=== PATIENT | female | born 1985 | race Caucasian/White ===

== ENCOUNTER 2017-09-14 23:34 | Inpatient (IN) | payer BC ==
[2017-09-15] MEDS ORDERED: METHYLERGONOVINE 0.2 MG/ML 1 ML AMP IM PRN (00:19)
[2017-09-15] MEDS ORDERED: TERBUTALINE 1 MG/ML VIAL SQ PRN (00:19)
[2017-09-15] MEDS ORDERED: OXYTOCIN 10 UNIT/ML 1 ML VIAL IM PRN (00:19)
[2017-09-15] MEDS ORDERED: CARBOPROST TROMETHAMINE 250 MCG/ML 1 ML AMP IM PRN (00:19)
[2017-09-15] MEDS ORDERED: LIDOCAINE 1% (PF) 10 MG/ML (30 ML SDV) SQ PRN (00:19)
[2017-09-15] MEDS ORDERED: BUTORPHANOL 1 MG/ML 1 ML VIAL IV PRN (00:20)
[2017-09-15] MEDS ORDERED: OXYTOCIN 20 UNITS/1000 ML NS 1,000 ML IV SCH (00:30)
[2017-09-15 01:01] VITALS: BMI 32.2
[2017-09-15] MEDS: LACTATED RINGERS 1,000 ML IV SCH ×3 (01:06→12:48)
[2017-09-15 01:14] LABS: Basophils # (A) 0.1 k/uL (0-0.2); Basophils % (A) 0 %; Eosinophils # (A) 0.2 k/uL (0-0.7); Eosinophils % (A) 1 %; HCT 32.9 % (34.0-46.0); HGB 11.3 gm/dL (11.4-16.0); Lymphocytes # (A) 2.6 k/uL (1.0-4.8); Lymphocytes % (A) 17 %; MCH 29.4 pg (25.0-35.0); MCHC 34.4 g/dL (31.0-37.0); MCV 85.4 fL (80.0-100.0); Mean Platelet Volume 7.8; Monocytes # (A) 0.8 k/uL (0-1.0); Monocytes % (A) 5 %; Neutrophils # (A) 11.7 k/uL (1.3-7.7); Neutrophils % (A) 75 %; Platelet Count 281 k/uL (150-450); RBC 3.85 m/uL (3.80-5.40); RDW 14.4 % (11.5-15.5); WBC 15.6 k/uL (3.8-10.6)
[2017-09-15] MEDS ORDERED: BUPIVACAINE (PF) 0.25% 30 ML VIAL ONE (07:36)
[2017-09-15] MEDS ORDERED: fentaNYL (PF) 50 MCG/ML 5 ML AMP ONE (07:36)
[2017-09-15] MEDS ORDERED: SODIUM CHLORIDE 0.9% 100 ML BAG ONE (07:36)
--- NOTE | 2017-09-15 07:55 | P.HPOB ---
History of Present Illness H&P Date: 09/15/17 This is a 32-year-old white female 1 para 0 EDC 09/28/2017 at 38 and one sevenths weeks' gestation. Patient presented with spontaneous amniorrhexis which occurred last night, clear fluid, at approximately 11 PM. She has had mild irregular uterine contractions to follow. Fetus is been active throughout the .. Past history significant for chronic arthritis and back pain, and - induced asthma. Past surgical history is negative. Current medications vitamins daily. ALLERGIES none known. Family history significant for heart disease, hypertension and stroke, brain tumor and Alzheimer's disease. Social history patient is a teacher, she is , she is never been a smoker , she denies alcohol or drug use. history is significant for negative group B strep cultures, 1 hour Glucola 140 but 3 hour GTT within normal limits, GC and chlamydia cultures, HIV testing, hepatitis B surface antigen, urine culture, VDRL all negative. Pap smear negative. Blood type A negative, rubella status immune. On exam this is a pleasant white female, she is 5 foot 3 inches, 182 pounds, blood pressure on admission 142/69. The general physical exam is within normal limits, the chest is clear in all canela. Extremities reveal no edema. heart rate is in the 140s with frequent accelerations consistent with reactive NST. Cervix is 2 cm dilated, -1 station, vertex presentation, 80% effaced. Uterine contractions are irregular at this time. Impression: 38 and one sevenths weeks intrauterine , early active labor with spontaneous amniorrhexis, all signs reassuring, blood type A-, group B strep culture negative. Plan: We will begin oxytocin augmentation. Continue close maternal and surveillance. Anticipate normal spontaneous vaginal delivery. Epidural may be placed per her request Review of Systems Constitutional: Reports as per HPI Past Medical History Past Medical History: Asthma History of Any Multi-Drug Resistant Organisms: None Reported Past Surgical History: No Surgical Hx Reported Past Anesthesia/Blood Transfusion Reactions: No Reported Reaction Past Psychological History: No Psychological Hx Reported Smoking Status: Never smoker Past Alcohol Use History: None Reported Past Drug Use History: None Reported - Past Family History Father Family Medical History: Hypertension Medications and Allergies Home Medications Medication Instructions Recorded Confirmed Type Yzd-Sapz-Oeguj Acid 1 tab PO DAILY 05/23/18 05/23/18 History [-U Capsule (formulary)] Allergies Allergy/AdvReac Type Severity Reaction Status Date / Time No Known Allergies Allergy Verified 09/14/17 23:40 Exam - Vital Signs Vital signs: Vital Signs Temp Pulse Resp BP Pulse Ox 09/15/17 00:09 96.6 F L 88 16 142/69 99 Intake and Output 09/14/17 09/15/17 09/15/17 22:59 06:59 14:59 Other: Weight 82.554 kg See dictation under HPI please Results Result Diagrams: 09/15/17 01:05 Abnormal Lab Results - Last 24 Hours (Table) 09/15/17 Range/Units 01:05 WBC 15.6 H (3.8-10.6) k/uL Hgb 11.3 L (11.4-16.0) gm/dL Hct 32.9 L (34.0-46.0) % Neutrophils # 11.7 H (1.3-7.7) k/uL Assessment and Plan Assessment: 38 and one sevenths weeks intrauterine , early spontaneous labor. Plan: Oxytocin augmentation per hospital protocol. Epidural is being placed per the patient's request. Continue close maternal and surveillance. Anticipate normal spontaneous vaginal delivery. Time with Patient: Less than 30
[2017-09-15] MEDS ORDERED: BUPIVACAINE (PF) 0.5% 12.5 ML, fentaNYL (PF) 200 MCG in SODIUM CHLORIDE 0.9% 83.5 ML EPIDURAL ONE (08:33)
--- NOTE | 2017-09-15 16:11 | P.PROBDLV ---
Vaginal Delivery Note - . Vaginal Delivery Note: This is a 32-year-old white female 1 para 0 EDC 09/28/2017 at 38 and one sevenths weeks' gestation. Patient presented with spontaneous amniorrhexis which occurred at night at home last night, clear fluid. She was admitted to the unit. Group B strep cultures negative. Blood type A-. Rubella status immune. Please see my dictated history and physical for details. Oxytocin augmentation was started. Patient became uncomfortable and requested epidural, this was placed without difficulty. She progressed through the first stage of labor with occasional late decelerations, overall excellent variability and reassuring pattern. Patient became completely dilated at 1525 hours and began the second stage of labor at that time. She progressed well in the second stage and heart tones were reassuring throughout. Ultimately the perineal body was prepped and draped in usual sterile fashion. 's head delivered occiput anterior and he restituted accordingly. There was no nuchal cord noted. The left or anterior shoulder was delivered easily from underneath the pubic symphysis at which time the oropharynx, nasopharynx, and external nares were bulb suctioned on the perineal body. Patient was officially delivered of a liveborn male at 1552 hours. Umbilical cord was doubly clamped and ligated, he was handed to waiting nurses for evaluation where scores of 9 and 9 at one and 5 minutes respectively were given. The placenta delivered spontaneously, it was inspected and noted to be intact with trivascular cord at 1555 hours. At this time the perineal body was redraped. Inspection of the cervix, vagina, perineum, periurethral, and perirectal areas revealed a small first-degree perineal laceration easily repaired using 3-0 Vicryl suture for excellent reapproximation and hemostasis. Fundus is firm and in the midline, symmetric and 18 week size upon completion of delivery. All sponge needle and enhancement counts are correct. They are requesting circumcision further infant son. Infant weighs 3180 g or 7 lbs. 0 oz.
[2017-09-15] MEDS ORDERED: BENZOCAINE/MENTHOL SPRAY 1 GM/SPRAY AEROSOL TOPICAL PRN (16:12)
[2017-09-15] MEDS ORDERED: diphenhydrAMINE 50 MG/ML 1 ML VIAL IVP PRN ×2 (16:12)
[2017-09-15] MEDS ORDERED: ZOLPIDEM 5 MG TAB PO PRN (16:12)
[2017-09-15] MEDS ORDERED: SIMETHICONE 80 MG CHEWABLE PO PRN (16:12)
[2017-09-15] MEDS ORDERED: diphenhydrAMINE 50 MG CAP PO PRN (16:12)
[2017-09-15] MEDS ORDERED: diphenhydrAMINE ELIXIR 25 MG/10 ML CUP PO PRN (16:12)
[2017-09-15] MEDS ORDERED: WITCH HAZEL 1 EACH MED..PAD TOPICAL PRN (16:12)
[2017-09-15] MEDS ORDERED: diphenhydrAMINE 25 MG CAP PO PRN (16:12)
[2017-09-15] MEDS ORDERED: HYDROcodone/APAP 5-325MG 1 EACH TAB PO PRN (16:12)
[2017-09-15] MEDS ORDERED: HYDROCORTISONE 2.5% RECTAL CREAM 30 GM TUBE RECTAL PRN (16:12)
[2017-09-15] MEDS ORDERED: LANOLIN CREAM 5 GM TUBE TOPICAL PRN (16:12)
[2017-09-15] MEDS: IBUPROFEN 600 MG TAB PO PRN (19:50)
[2017-09-15] MEDS: SENNOSIDES-DOCUSATE SODIUM 1 EACH TAB PO SCH (19:50)
[2017-09-15] MEDS: ACETAMINOPHEN TAB 325 MG TAB PO PRN (22:23)
[2017-09-16] MEDS: IBUPROFEN 600 MG TAB PO PRN ×2 (04:16→14:31)
--- NOTE | 2017-09-16 07:12 | P.DS ---
Providers Date of admission: 09/15/17 00:02 Expected date of discharge: 09/16/17 Attending physician: Beulah Cross Primary care physician: Stated None Hospital Course: This is a 32-year-old white female 1 para 0 EDC 09/28/2017 at 38-2/7 weeks' gestation. Patient presented to the hospital with spontaneous amniorrhexis which occurred at home, clear fluid. Her was unremarkable, group B strep cultures negative, blood type A-, rubella status immune. Please see my dictated history and physical for details. Oxytocin augmentation was started, epidural was placed per her request. She went on to deliver vaginally a liveborn male infant with scores of 9 and 9 at one and 5 minutes respectively. There was a small first-degree perineal laceration easily repaired. Estimated blood loss 300 mL's. weighed 3180 g or 7 lbs. 0 oz. Please see my dictated delivery note for details. This morning the patient is doing well. She is voiding, ambulating and passing flatus without difficulty. Vital signs are stable and she is afebrile. Fundus is firm and in the midline, symmetric and 18 week size. Perineal body is clean and dry. Extremities reveal no edema. Chest is clear. Circumcision on her has been performed. Patient is being discharged home today in very good condition. She will follow- up in the office with me in 6 weeks. We have reviewed the options for contraception and she and her will contemplate this, we will discuss further in the office. She will use wolc-wej-oonsemn Motrin products as needed for pain. I've asked her to call me with any fevers shakes or chills, foul smelling or copious lochia, with the passage of any large blood clots, with any pain not alleviated by Motrin, or indeed with any problems difficulties questions or concerns. Patient Condition at Discharge: Good Plan - Discharge Summary New Discharge Prescriptions: No Action Pmp-Xgmo-Bynim Acid [-U Capsule (formulary)] 1 tab PO DAILY Discharge Medication List Hkd-Jswk-Kquom Acid [-U Capsule (formulary)] 1 tab PO DAILY [History] Follow up Appointment(s)/Referral(s): Beulah Cross MD [STAFF PHYSICIAN] - 6 Weeks Discharge Disposition: HOME SELF-CARE
[2017-09-16] MEDS: ACETAMINOPHEN TAB 325 MG TAB PO PRN (08:06)
[2017-09-16] MEDS: SENNOSIDES-DOCUSATE SODIUM 1 EACH TAB PO SCH (08:08)
[2017-09-16 09:25] VITALS: RESP 16
[2017-09-16 19:07] VITALS: BP 132/78; PULSE 82; TEMP 98.1
== END 2017-09-16 17:45 | disposition home or self-care (01) | DRG 775 ==
LOC: FBPOP 23:34 → 4FBP 09-15 00:02
PROVIDERS: ADMIT Obstetrics & Gynecology; ATTEND Obstetrics & Gynecology
PROC: 10E0XZZ Delivery of Products of Conception, External Approach (ICD-10-PCS; principal; 2017-09-15)
PROC: 0HQ9XZZ Repair Perineum Skin, External Approach (ICD-10-PCS; 2017-09-15)
PROC: 00HU33Z Insertion of Infusion Device into Spinal Canal, Percutaneous Approach (ICD-10-PCS; 2017-09-15)
PROC: 3E0R3BZ Introduction of Anesthetic Agent into Spinal Canal, Percutaneous Approach (ICD-10-PCS; 2017-09-15)
DX: O99.52 Diseases of the respiratory system complicating childbirth (principal); O76 Abnormality in fetal heart rate and rhythm complicating labor and delivery; O70.0 First degree perineal laceration during delivery; J45.909 Unspecified asthma, uncomplicated; O99.89 Other specified diseases and conditions complicating pregnancy, childbirth and the puerperium; M19.90 Unspecified osteoarthritis, unspecified site; M54.9 Dorsalgia, unspecified; Z37.0 Single live birth; Z3A.38 38 weeks gestation of pregnancy; Z82.49 Family history of ischemic heart disease and other diseases of the circulatory system; Z82.3 Family history of stroke; Z82.0 Family history of epilepsy and other diseases of the nervous system
CPT/HCPCS: 84112; 85025; 88307; 99213

== ENCOUNTER 2019-01-23 13:00 | Outpatient (CLI) | payer BC ==
[2019-01-23 14:43] VITALS: BP 124/72; PULSE 81; RESP 14; TEMP 98
--- NOTE | 2019-02-12 08:02 | P.MSEPDOC ---
Presenting Problems - Arrival Data Date of Arrival on Unit: 01/23/19 Time of Arrival on Unit: 13:00 Mode of Transport: Ambulatory - Complaint OB-Reason for Admission/Chief Complaint: Possible Onset of Labor Comment: contraction started around 6 am this morning Medical History - Information : 2 Para: 1 Term: 1 : 0 Abortions: Spontaneous or Elective: 0 Number of Living Children: 1 - Gestational Age Gestational Age by SILVER (wks/days): 35 Weeks and 4 Days Review of Systems - Review of Systems Constitutional: No problems Breast: No problems ENT: No problems Cardiovascular: No problems Respiratory: No problems Gastrointestinal: No problems Genitourinary: No problems Musculoskeletal: No problems Neurological: No problems Skin: No problems Vital Signs - Temperature Temperature: 98 F Temperature Source: Oral - Pulse Right Brachial Pulse Rate: 81 Pulse Assessment Method: Automatic Cuff - Respirations Respiratory Rate: 14 Oxygen Delivery Method: Room Air - Blood Pressure Right Arm Blood Pressure: 124/72 Blood Pressure Mean: 89 Blood Pressure Source: Automatic Cuff Medical Screen Scoring (Pre) - Cervical Exam Dilation: 0 cm = 0 Membranes: Intact - Uterine Contractions Frequency: N/A Duration: N/A Intensity: N/A - Maternal Vital Signs Maternal Temperature: N/A Maternal Blood Pressure: N/A Signs of Preeclampsia: N/A Maternal Respirations: N/A - Maternal Trauma Maternal Trauma: N/A - Assessment - Baby A Baseline FHR: 145 Heart Rate - NICHD Category: Category I (Normal) = 0 NST: Reactive Position: N/A Station: N/A - Total Score - Baby A Total Score - Baby A: 0 - Total Score - Baby B Total Score - Baby B: 0 - Total Score - Baby C Total Score - Baby C: 0 - Level of Risk - Baby A Level of Risk - Baby A: Low (0-5) - Level of Risk - Baby B Level of Risk - Baby B: Low (0-5) - Level of Risk - Baby C Level of Risk - Baby C: Low (0-5) Physician Notification (Pre) - Physician Notified Physician Notified Date: 01/23/19 Physician Notified Time: 14:10 Physician/Practitioner Notifed:: kylah Spoke With: kylah New Order Received: Yes - Notification Comment Comment: reported pt visit with irregular contractions, reactive nst, stable v/s, cervical exam. would like pt rechecked with no change may be discharged home Disposition - Disposition OB Disposition: Physician follow up in office, Discharge to home Discharge Date: 01/23/19 Discharge Time: 14:32 I agree with the RN Medical Screening Exam: Yes Risk & Benefit of care provided described in d/c instruction: Yes Diagnosis: FALSE LABOR BEFORE 37 COMPLETED WEEKS OF GEST, THIRD TRI
== END 2019-01-23 14:32 | disposition home or self-care (01) ==
LOC: FBPOP 13:00
PROVIDERS: ATTEND Obstetrics & Gynecology
DX: O47.03 False labor before 37 completed weeks of gestation, third trimester (principal); Z3A.35 35 weeks gestation of pregnancy
CPT/HCPCS: 59025; 99213

== ENCOUNTER 2019-02-11 23:54 | Inpatient (IN) | payer BC ==
[2019-02-12] MEDS ORDERED: OXYTOCIN 10 UNIT/ML 1 ML VIAL IM PRN (00:30)
[2019-02-12] MEDS ORDERED: LIDOCAINE 0.5% (PF) 5 MG/ML (50 ML SDV) SQ PRN (00:30)
[2019-02-12] MEDS ORDERED: CARBOPROST TROMETHAMINE 250 MCG/ML 1 ML AMP IM PRN (00:30)
[2019-02-12] MEDS ORDERED: METHYLERGONOVINE 0.2 MG/ML 1 ML AMP IM PRN (00:30)
[2019-02-12] MEDS ORDERED: LACTATED RINGERS 1,000 ML IV SCH (00:30)
[2019-02-12] MEDS ORDERED: TERBUTALINE 1 MG/ML VIAL SQ PRN (00:30)
[2019-02-12] MEDS ORDERED: OXYTOCIN 30 UNITS/500 ML NS 30 UNIT in SALINE 1 500ML.BAG IV SCH (00:30)
[2019-02-12] MEDS: LACTATED RINGERS 1,000 ML IV SCH ×3 (01:56→06:16)
[2019-02-12 02:05] LABS: Basophils # (A) 0.1 k/uL (0-0.2); Basophils % (A) 0 %; Eosinophils # (A) 0.2 k/uL (0-0.7); Eosinophils % (A) 1 %; HCT 35.5 % (34.0-46.0); Lymphocytes # (A) 2.4 k/uL (1.0-4.8); Lymphocytes % (A) 14 %; MCH 27.6 pg (25.0-35.0); MCHC 31.1 g/dL (31.0-37.0); MCV 88.9 fL (80.0-100.0); Mean Platelet Volume 7.6; Monocytes # (A) 0.8 k/uL (0-1.0); Monocytes % (A) 5 %; Neutrophils # (A) 13.2 k/uL (1.3-7.7); Neutrophils % (A) 78 %; Platelet Count 290 k/uL (150-450); RBC 3.99 m/uL (3.80-5.40); RDW 14.4 % (11.5-15.5); WBC 16.8 k/uL (3.8-10.6)
[2019-02-12] MEDS ORDERED: ROPIVACAINE 5MG/ML 20ML VIAL ONE (03:47)
[2019-02-12] MEDS ORDERED: SODIUM CHLORIDE 0.9% 100 ML BAG ONE (03:47)
[2019-02-12] MEDS ORDERED: fentaNYL (PF) 50 MCG/ML 5 ML AMP ONE (03:47)
--- NOTE | 2019-02-12 07:54 | P.HPOB ---
History of Present Illness H&P Date: 02/12/19 Chief Complaint: My water broke last night This is a 33-year-old white female 2 para 1001 EDC 02/22/2019 at 38-4/7 weeks' gestation. Patient presented with spontaneous amniorrhexis which occurred at home at approximately 10:45 PM, clear fluid. She presented with ir regular mild uterine contractions. Fetus is been active throughout the . Past medical history is significant for asthma, on albuterol inhaler as needed. Also significant for chronic back pain. Past surgical history negative. Current medications Ventolin inhaler 90 MCG is 1-2 puffs every 4-6 hours when necessary. vitamin daily. ALLERGIES none known. Family history is significant for hypertension, stroke, heart disease, Alzheimer's disease, and a brain tumor. Reproductive history significant for vaginal delivery in August 2017, first-degree laceration. 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 history is significant for blood type A-, rubella status immune. VDRL testing, urine culture, group B strep cultures, HIV testing, gonorrhea and chlamydia cultures, group B strep cultures all negative. One-hour Glucola 108. On exam this is a pleasant white female who is 5 foot 3 inches, 181 pounds, blood pressure 130/77 on admission, vital signs are stable. The general phys ical exam is within normal limits. Cervix on admission was 4-5 cm dilated, vertex presentation, -2 station, obvious amniorrhexis. heart rate consistent with reactive NST. Impression: Advanced maternal age, 38-4/7 weeks intrauterine , early spontaneous labor. All signs reassuring. Plan: Continue close maternal and surveillance. Epidural has been requested and has been placed. Anticipate normal spontaneous vaginal delivery. Review of Systems Constitutional: Reports as per HPI Past Medical History Past Medical History: Asthma History of Any Multi-Drug Resistant Organisms: None Reported Past Surgical History: No Surgical Hx Reported Past Anesthesia/Blood Transfusion Reactions: No Reported Reaction Past Psychological History: No Psychological Hx Reported Smoking Status: Never smoker Past Alcohol Use History: None Reported Past Drug Use History: None Reported - Past Family History Father Family Medical History: Coronary Artery Disease (CAD), Hypertension Medications and Allergies Home Medications Medication Instructions Recorded Confirmed Type Hoh-Rdug-Jekku Acid 1 tab PO DAILY 09/14/17 02/12/19 History [-U Capsule (formulary)] Albuterol Inhaler [Ventolin Hfa 1 - 2 puff INHALATION RT-Q6H PRN 01/23/19 02/12/19 History Inhaler] Allergies Allergy/AdvReac Type Severity Reaction Status Date / Time No Known Allergies Allergy Verified 02/12/19 00:35 Exam Vital Signs Temp Pulse Resp BP 02/12/19 00:27 97.1 F L 108 H 16 130/77 Intake and Output 02/11/19 02/12/19 02/12/19 22:59 06:59 14:59 Other: # Voids 1 Weight 82.1 kg See dictation under HPI please Results Result Diagrams: 02/12/19 01:40 Abnormal Lab Results - Last 24 Hours (Table) 02/12/19 Range/Units 01:40 WBC 16.8 H (3.8-10.6) k/uL Hgb 11.0 L (11.4-16.0) gm/dL Neutrophils # 13.2 H (1.3-7.7) k/uL Assessment and Plan Assessment: Advanced maternal age, 38-4/7 weeks intrauterine , active labor. All signs reassuring. Plan: Continue close maternal and surveillance. Epidural has been placed per patient's request. Anticipate normal spontaneous vaginal delivery. Time with Patient: Less than 30
[2019-02-12] MEDS ORDERED: HYDROCORTISONE 2.5% RECTAL CREAM 30 GM TUBE RECTAL PRN (07:58)
[2019-02-12] MEDS ORDERED: ACETAMINOPHEN TAB 325 MG TAB PO PRN (07:58)
[2019-02-12] MEDS ORDERED: WITCH HAZEL 1 EACH MED..PAD TOPICAL PRN (07:58)
[2019-02-12] MEDS ORDERED: BENZOCAINE/MENTHOL SPRAY 1 GM/SPRAY AEROSOL TOPICAL PRN (07:58)
[2019-02-12] MEDS ORDERED: IBUPROFEN 600 MG TAB PO PRN (07:58)
[2019-02-12] MEDS ORDERED: ZOLPIDEM 5 MG TAB PO PRN (07:58)
[2019-02-12] MEDS ORDERED: diphenhydrAMINE 50 MG/ML 1 ML VIAL IVP PRN ×2 (07:58)
[2019-02-12] MEDS ORDERED: LANOLIN CREAM 5 GM TUBE TOPICAL PRN (07:58)
[2019-02-12] MEDS ORDERED: diphenhydrAMINE 50 MG CAP PO PRN (07:58)
[2019-02-12] MEDS ORDERED: diphenhydrAMINE 25 MG CAP PO PRN (07:58)
[2019-02-12] MEDS ORDERED: SIMETHICONE 80 MG CHEWABLE PO PRN (07:58)
[2019-02-12] MEDS ORDERED: diphenhydrAMINE ELIXIR 25 MG/10 ML CUP PO PRN (07:58)
--- NOTE | 2019-02-12 07:58 | P.PROBDLV ---
Vaginal Delivery Note - . Vaginal Delivery Note: This is a 33-year-old white female 2 para 1001 EDC 02/22/2019 at 38-4/7 weeks' gestation. Patient presented with spontaneous amniorrhexis which occurred at home, clear fluid, with uterine contractions to follow. is essentially healthy and unremarkable, group B strep cultures negative, blood type A-, rubella status immune. Please see dictated history and physical for details. Epidural was placed per patient's request. She progressed well through the first stage of labor. heart tones were reassuring throughout. She was judged to be completely dilated at 0726 hours and began the second stage of labor at that time. Perineal body is prepped and draped in usual sterile fashion. With excellent maternal expulsive efforts the head quickly delivered and crowned in the occiput anterior position. There was no nuchal cord noted. The left or anterior shoulder was delivered easily from underneath the pubic symphysis at which time the oropharynx, nasopharynx, and external nares were all bulb suctioned on the perineal body. Patient was officially delivered of a liveborn female infant at 0734 hours. Umbilical cord was doubly clamped and ligated, she was handed to waiting nurses for evaluation where scores of 8 and 9 at one and 5 minutes respectively were given. The placenta delivered spontaneously, with a small amount of manual assistance at the perineal body, at 0738 hours. It is inspected and noted to be fully intact with trivascular cord. Uterus is then massaged. Inspection carefully of the cervix, vagina, perineum, periurethral, and perirectal areas revealed the presence of a small midline first-degree laceration. This was easily reapproximated with a single ubyfga-ej-twokz suture. All sponge needle and instrument counts are correct. Fundus is firm and in the midline, symmetric and 18 week size upon completion of delivery. 's weight 3345 g, or 7 lbs. 6 oz. Total estimated blood loss 250 mL's. All sponge, needle and instrument counts are correct at the end of the procedure. Patient and her Ayaan are allowed to begin the bonding experience in the LDR with her baby.
[2019-02-12] MEDS ORDERED: OXYTOCIN 20 UNITS/1000 ML NS 1,000 ML IV SCH (08:00)
[2019-02-12] MEDS: SENNOSIDES-DOCUSATE SODIUM 1 EACH TAB PO SCH ×2 (08:42→19:30)
[2019-02-12] MEDS ORDERED: Rhogam IMMUNE GLOBULIN 1,500 UNIT/1 ML IM ONE (15:57)
[2019-02-12 20:43] VITALS: RESP 16
[2019-02-13 08:10] VITALS: BP 128/85; PULSE 69; TEMP 97.9
--- NOTE | 2019-02-13 08:12 | P.DS ---
Providers Date of admission: 02/12/19 00:22 Expected date of discharge: 02/13/19 Attending physician: Beulah Cross Primary care physician: Stated None Hospital Course: This is a 33-year-old white female 2 para 1001 EDC 02/22/2019 who presented at 38-4/7 weeks with active spontaneous labor from home. is essentially unremarkable, blood type A-, rubella status immune, group B strep cultures negative. Please see dictated history and physical for details. Spontaneous amniorrhexis occurred for clear fluid. Epidural was placed per her request. She progressed through labor and went on to swiftly deliver a liveborn female . Weight 7 lbs. 6 oz. or 3345 g. Estimated blood loss 250 mL's. Small first-degree perineal laceration easily repaired, please see dictated delivery note for details. This morning the patient is doing well. She is voiding, ambulating, and passing flatus without difficulty. Vital signs are stable and she is afebrile. infant is doing well. Unremarkable. Vaginal bleeding is scant at this time. Patient denies pain. She is judged to be in very good condition for discharge home. She will follow-up with me in the office in 6 weeks. I have reminded her no intercourse, tampons or douching. She will continue taking her vitamin daily. She will use [id number]-[id number] Advil or Motrin or Aleve as needed for pain. She will call me with any fevers shakes or chills, foul smelling or copious lochia, with the passage of large blood clots, with any pain not alleviated by [id number]-[id number] products, or indeed with any concerns. We have briefly discussed options for contraception and we will discuss this further in the office. Patient Condition at Discharge: Good Plan - Discharge Summary Discharge Rx Participant: No New Discharge Prescriptions: No Action Rma-Znsd-Tuffx Acid [-U Capsule (formulary)] 1 tab PO DAILY Albuterol Inhaler [Ventolin Hfa Inhaler] 1 - 2 puff INHALATION RT-Q6H PRN PRN Reason: Shortness Of Breath Discharge Medication List Qdx-Iwak-Wjmoj Acid [-U Capsule (formulary)] 1 tab PO DAILY 09/14/17 [History] Albuterol Inhaler [Ventolin Hfa Inhaler] 1 - 2 puff INHALATION RT-Q6H PRN 01/23/19 [History] Follow up Appointment(s)/Referral(s): Beulah Cross MD [STAFF PHYSICIAN] - 6 Weeks
[2019-02-13] MEDS: SENNOSIDES-DOCUSATE SODIUM 1 EACH TAB PO SCH (11:43)
== END 2019-02-13 11:10 | disposition home or self-care (01) | DRG 807 ==
LOC: FBPOP 23:54 → 4FBP 02-12 00:22
PROVIDERS: ADMIT Obstetrics & Gynecology Obstetrics; ATTEND Obstetrics & Gynecology
PROC: 10E0XZZ Delivery of Products of Conception, External Approach (ICD-10-PCS; principal; 2019-02-12)
PROC: 3E0R3NZ Introduction of Analgesics, Hypnotics, Sedatives into Spinal Canal, Percutaneous Approach (ICD-10-PCS; principal; 2019-02-12)
PROC: 0HQ9XZZ Repair Perineum Skin, External Approach (ICD-10-PCS; principal; 2019-02-12)
PROC: 00HU33Z Insertion of Infusion Device into Spinal Canal, Percutaneous Approach (ICD-10-PCS; principal; 2019-02-12)
DX: O70.0 First degree perineal laceration during delivery (principal); Z37.0 Single live birth; J45.909 Unspecified asthma, uncomplicated; O99.52 Diseases of the respiratory system complicating childbirth; Z3A.38 38 weeks gestation of pregnancy; Z82.0 Family history of epilepsy and other diseases of the nervous system; Z82.3 Family history of stroke; Z82.49 Family history of ischemic heart disease and other diseases of the circulatory system
CPT/HCPCS: 85025; 85461; 86850; 86900; 86901

== ENCOUNTER → 2019-12-10 | Outpatient (CLI) | payer BC ==
--- NOTE | 2019-12-10 10:26 | CT ---
EXAMINATION TYPE: CT abdomen pelvis wo con DATE OF EXAM: 12/10/2019 COMPARISON: None HISTORY: Right flank pain CT DLP: 595 mGycm Examination of the solid and hollow viscera is limited given the lack of contrast. FINDINGS: LUNG BASES: No evidence for nodule. No evidence for infiltrate. LIVER/GB: The gallbladder is unremarkable. No space-occupying hepatic lesion. PANCREAS: No pancreatic mass identified. No inflammatory process seen. SPLEEN: No evidence for splenomegaly. No intrasplenic lesions seen. ADRENALS: No adrenal nodules identified. No evidence for thickening. KIDNEYS: No evidence for renal mass. No nephrolithiasis. No hydronephrosis. BOWEL: Appendix has a normal appearance. No evidence of bowel obstruction. No inflammatory process. Lymph nodes: No evidence for adenopathy greater than 1 cm. Abdominal aorta: Atheromatous changes seen. No evidence for aneurysm. Genital organs: No significant abnormality. Other: No significant abnormality. IMPRESSION: 1. No distinct abnormality to patient's symptoms.
== END | disposition home or self-care (01) ==
LOC: RADCTMAIN 09:55
PROVIDERS: ATTEND Family Medicine
DX: R10.9 Unspecified abdominal pain (principal); N20.0 Calculus of kidney
CPT/HCPCS: 74176

== ENCOUNTER → 2020-06-17 | Outpatient (CLI) | payer BC ==
--- NOTE | 2020-06-17 09:11 | US ---
EXAMINATION TYPE: US carotid duplex BILAT DATE OF EXAM: 06/17/2020 COMPARISON: NONE CLINICAL HISTORY: R42 dizziness and giddiness. Dizziness and giddiness EXAM MEASUREMENTS: RIGHT: Peak Systolic Velocity (PSV) cm/sec ----- Right CCA: 95.2 ----- Right ICA: 89.7 ----- Right ECA: 109.2 ICA/CCA ratio: 0.9 RIGHT: End Diastole cm/sec ----- Right CCA: 32.5 ----- Right ICA: 27.0 ----- Right ECA: 18.0 LEFT: Peak Systolic Velocity (PSV) cm/sec ----- Left CCA: 98.6 ----- Left ICA: 98.5 ----- Left ECA: 88.6 ICA/CCA ratio: 1.0 LEFT: End Diastole cm/sec ----- Left CCA: 35.2 ----- Left ICA: 40.2 ----- Left ECA: 19.3 VERTEBRALS (direction of flow): Right Vertebral: Antegrade Left Vertebral: Antegrade Rhythm: Normal Grayscale, color Doppler, spectral Doppler imaging performed of the carotid arteries. Waveform analys is does not show significant stenosis of the internal carotid arteries. No significant stenosis seen bilaterally. IMPRESSION: No hemodynamic significant stenosis of the proximal internal carotid arteries by Doppler criteria, an indirect measurement of carotid stenosis Criteria for Assigning % of Stenosis / Diameter reduction (Estimation based on the indirect measurements of the internal carotid artery velocities (ICA PSV). 1. Normal (no stenosis)=ICA PSV < 125 cm/s: ratio < 2.0: ICA EDV<40 cm/s. 2. Less than 50% stenosis=ICA PSV < 125 cm/s: ratio < 2.0: ICA EDV<40 cm/s. 3. 50 to 69% stenosis=ICA PSV of 125 to 230 cm/s: ration 2.0 ? 4.0: ICA EDV 40-100 cm/s. 4. Greater than 70% stenosis to near occlusion= ICA PSV > 230 cm/s: ratio > 4.0: ICA EDV > 100 cm/s. 5. Near occlusion= ICA PSV velocities may be low or undetectable: variable ratio and ICA EDV. 6. Total occlusion=unable to detect flow.
--- NOTE | 2020-06-17 09:45 | CT ---
EXAMINATION TYPE: CT brain wo con DATE OF EXAM: 06/17/2020 COMPARISON: None HISTORY: Dizziness and giddiness. Per patient having "black outs" CT DLP: 892.10 mGycm. Automated Exposure Control for Dose Reduction was Utilized. TECHNIQUE: CT scan of the head is performed without contrast. FINDINGS: There is no acute intracranial hemorrhage, mass effect, or midline shift identified. The ventricles and sulci are within normal limits in size. The globes are intact and the visualized sin uses are clear. Possible arachnoid cyst or maybe cisterna magna noted posterior inferior aspect of th e posterior fossa. IMPRESSION: No acute intracranial hemorrhage, mass effect, or midline shift is seen.
--- NOTE | 2020-06-17 10:17 | ECHOF ---
Referral Reason:R42 dizziness and giddiness MEASUREMENTS -------- HEIGHT: 160.0 cm WEIGHT: 65.8 kg BP: RVIDd: 2.6 cm (< 3.3) IVSd: 1.0 cm (0.6 - 1.1) LVIDd: 4.0 cm (3.9 - 5.3) LVPWd: 1.0 cm (0.6 - 1.1) IVSs: 1.3 cm LVIDs: 2.7 cm LVPWs: 1.5 cm LAESV Index (A-L): 16.44 ml/m Ao Diam: 2.5 cm (2.0 - 3.7) AV Cusp: 1.9 cm (1.5 - 2.6) LA Diam: 2.3 cm (2.7 - 3.8) MV EXCURSION: 18.525 mm (> 18.000) MV EF SLOPE: 171 mm/s (70 - 150) EPSS: 0.5 cm MV E Patirck: 0.89 m/s MV DecT: 191 ms MV A Patrick: 0.53 m/s MV E/A Ratio: 1.68 RAP: 5.00 mmHg RVSP: 21.61 mmHg FINDINGS -------- This was a technically good study. The left ventricular size is normal. Left ventricular wall thickness is normal. Overall left vent ricular systolic function is normal with, an EF between 55 - 60 %. The diastolic filling pattern is normal for the age of the patient 8.93. The right ventricle is normal in size. The left atrial size is normal. Normal LA size by volume 22+/-6 ml/m2. The right atrial size is normal. Interatrial and interventricular septum intact. The aortic valve is trileaflet and appears structurally normal. The mitral valve is normal. Mild mitral regurgitation is present. There is minimal mitral valve p rolapse , predominately a posteriorly directed jet. The tricuspid valve appears structurally normal. Trace tricuspid regurgitation present. Right elvi tricular systolic pressure is normal at < 35 mmHg. There is no pulmonic regurgitation present. The aortic root size is normal. Normal inferior vena cava with normal inspiratory collapse consistent with estimated right atrial pre ssure of 5 mmHg. There is no pericardial effusion. CONCLUSIONS -------- 1. The left ventricular size is normal. 2. Left ventricular wall thickness is normal. 3. Overall left ventricular systolic function is normal with, an EF between 55 - 60 %. 4. The diastolic filling pattern is normal for the age of the patient 8.93 5. Mild mitral regurgitation is present. 6. There is minimal mitral valve prolapse. 7. , predominately a posteriorly directed jet. 8. Trace tricuspid regurgitation present. 9. There is no pericardial effusion. [employer]: Becki Morales RDCS
--- NOTE | 2020-06-17 12:54 | EST ---
EXERCISE STRESS AGE: 34 SEX: Female HT: 5'3-2 " WT: @@ PROTOCOL: Avelino STAGE: 3 DURATION OF EXERCISE: 9 minutes HEART RATE REST: 87 BLOOD PRESSURE REST: 121/76 MAXIMUM HEART RATE ACHIEVED: 168 MAXIMUM BLOOD PRESSURE: 165/91 85% MPHR: 156 100% MPHR: 184 METS: 10 INDICATIONS: Dizziness. CLINICAL INFORMATION: Baseline EKG shows sinus rhythm, normal axis, normal intervals. Patient exercised on Avelino protocol for a total of 9 minutes achieving 10 METs, 91% of predicted maximal heart rate without chest pain. At peak exercise, there was 0.[address]-segment depression noted in the inferolateral leads. CONCLUSIONS: 1. Good exercise tolerance. 2. Abnormal but nondiagnostic EKG changes to exercise. .. MMPANKAJ / IJN: [id number] /
== END | disposition home or self-care (01) ==
LOC: RADCTMAIN 07:17
PROVIDERS: ATTEND Family Medicine
DX: I34.1 Nonrheumatic mitral (valve) prolapse (principal); R42 Dizziness and giddiness
CPT/HCPCS: 70450; 93017; 93306; 93880

== ENCOUNTER 2021-01-03 13:08 | Observation (INO) | payer BC ==
[2021-01-03] MEDS ORDERED: SODIUM CHLORIDE 0.9% 1,000 ML IV STA (14:05)
[2021-01-03] MEDS ORDERED: ACETAMINOPHEN TAB 500 MG TAB PO STA (14:17)
[2021-01-03 14:24] LABS: Basophils # (A) 0.1 k/uL (0-0.2); Basophils % (A) 0 %; Eosinophils # (A) 0.1 k/uL (0-0.7); Eosinophils % (A) 1 %; HCT 40.9 % (34.0-46.0); HGB 14.3 gm/dL (11.4-16.0); Lymphocytes # (A) 3.3 k/uL (1.0-4.8); Lymphocytes % (A) 19 %; MCH 30.4 pg (25.0-35.0); MCV 86.9 fL (80.0-100.0); Mean Platelet Volume 7.9; Monocytes # (A) 0.8 k/uL (0-1.0); Monocytes % (A) 5 %; Neutrophils # (A) 12.5 k/uL (1.3-7.7); Neutrophils % (A) 74 %; Platelet Count 306 k/uL (150-450); RDW 12.3 % (11.5-15.5); WBC 16.9 k/uL (3.8-10.6)
[2021-01-03 14:35] LABS: Appearance,Urine Clear (Clear); Bilirubin,Urine Negative (Negative); Blood,Urine Negative (Negative); Color,Urine Colorless; Glucose,Urine (UA) Negative (Negative); Ketones,Urine Negative (Negative); Leukocyte Esterase,Urine Negative (Negative); Nitrite,Urine Negative (Negative); PH, Urine 6.5 (5.0-8.0); Protein,Urine Negative (Negative); Specific Gravity,Urine 1.002 (1.001-1.035); Urobilinogen,Urine <2.0 mg/dL (<2.0)
[2021-01-03 14:42] LABS: ALT 11 U/L (4-34); AST 18 U/L (14-36); African American GFR (CKD) >90 (>60 ml/min/1.73 sqM); Albumin 4.4 g/dL (3.5-5.0); Alkaline Phosphatase 106 U/L (38-126); Anion Gap 10 mmol/L; Blood Urea Nitrogen 8 mg/dL (7-17); Calcium 9.1 mg/dL (8.4-10.2); Carbon Dioxide 23 mmol/L (22-30); Chloride 104 mmol/L (98-107); Glucose 93 mg/dL (74-99); Lipase 67 U/L (23-300); Non-African American GFR(CKD) >90 (>60 ml/min/1.73 sqM); Potassium 3.9 mmol/L (3.5-5.1); Sodium 137 mmol/L (137-145); Total Bilirubin 0.6 mg/dL (0.2-1.3); Total Protein 7.6 g/dL (6.3-8.2)
[2021-01-03] MEDS ORDERED: ONDANSETRON 4 MG/2 ML VIAL IVP STA (14:56)
--- NOTE | 2021-01-03 16:34 | CT ---
EXAMINATION TYPE: CT abdomen pelvis w con DATE OF EXAM: 01/03/2021 COMPARISON: CT abdomen/pelvis 12/10/2019 HISTORY: epigastric pain, nausea CT DLP: 717.9 mGycm. Automated Exposure Control for Dose Reduction was Utilized. TECHNIQUE: Multiple contiguous axial CT images of the abdomen and pelvis were obtained from the lung bases through the pubic symphysis with IV Contrast, patient injected with 100 mL of Isovue 300. 2-D s agittal and coronal reformatted images were obtained. FINDINGS: Lung bases are clear. Liver, spleen, pancreas, and bilateral adrenal glands have an unremarkable enhanced appearance. Gallbladder is present. No definite intrahepatic or extrahepatic biliary ductal dilatation. Kidneys are symmetric in size without hydronephrosis. No renal or ureteral calculi. Urinary bladder a ppears unremarkable. Uterus is present. No adnexal masses. Small amount of free fluid within the pelvis. Visualized bowel is of normal caliber without evidence of obstruction. Dilated 8-9 mm retrocecal tubu lar structure with hyperenhancing quan adjacent inflammation and with small faint intraluminal calci fication. No free air. Abdominal aorta is of normal caliber. Prominent mesenteric lymph nodes in the right lower abdomen whi ch may be reactive. Subcutaneous soft tissues appear unremarkable. Osseous structures appear intact. IMPRESSION: Findings consistent with acute appendicitis with possible rupture given the free fluid in the pelvis
[2021-01-03] MEDS ORDERED: PIPERACILLIN-TAZOBACTAM 3.375 GM in SODIUM CHLORIDE 0.9% 100 ML IVPB STA (16:41)
--- NOTE | 2021-01-03 17:11 | ED ---
Abdominal Pain HPI - General Chief Complaint: Abdominal Pain Stated Complaint: Upper Abd pain, sent from [facility] urgent care Time Seen by Provider: 01/03/21 13:25 Source: patient Mode of arrival: ambulatory Limitations: no limitations - History of Present Illness Initial Comments: Patient is a 35-year-old previous healthy female presents emergency room with reported diffuse abdominal pain. Pain started yesterday date that it is generalized. States the pain is worse when she gets up and moves around however tolerable when she is sitting down. She tended to the ED and her last night however had no appetite. She went to an urgent care this morning. Urine was completed which demonstrated that she was not . They recommended that she come to the emergency room for further evaluation. She denies any changes in her urination to include dysuria, hematuria or difficulty voiding. No changes in her bowel habits to include diarrhea, constipation, black or bloody stools. No concern for . Denies vaginal bleeding or discharge. Last menstrual cycle was on December 15. She is in a monogamous relationship with her . She does have a 2-year-old daughter that she is breast-feeding. She attempted takes Motrin at home without any improvement in her pain. No fevers. Denies any previous abdominal surgeries. No other alleviating, precipitating or modifying factors - Related Data Home Medications Medication Instructions Recorded Confirmed Lco-Xzaj-Smisq Acid 1 tab PO DAILY 09/14/17 01/03/21 [-U Capsule (formulary)] Allergies Allergy/AdvReac Type Severity Reaction Status Date / Time Sulfa (Sulfonamide Allergy Unknown Verified 01/03/21 13:18 Antibiotics) Review of Systems ROS Statement: Those systems with pertinent positive or pertinent negative responses have been documented in the HPI. ROS Other: All systems not noted in ROS Statement are negative. Past Medical History Past Medical History: Asthma History of Any Multi-Drug Resistant Organisms: None Reported Past Surgical History: No Surgical Hx Reported Past Anesthesia/Blood Transfusion Reactions: No Reported Reaction Past Psychological History: No Psychological Hx Reported Smoking Status: Never smoker Past Alcohol Use History: None Reported Past Drug Use History: None Reported - Past Family History Father Family Medical History: Coronary Artery Disease (CAD), Hypertension General Exam Limitations: no limitations Course Vital Signs 01/03/21 01/03/21 13:16 15:02 Temperature 98.3 F Pulse Rate 84 89 Respiratory 18 20 Rate Blood Pressure 122/83 144/92 O2 Sat by Pulse 98 100 Oximetry Medical Decision Making - Medical Decision Making Upon arrival patient is placed into room 10. A thorough history and physical exam was performed. Patient does have generalized tenderness to her abdomen consistent with peritoneal signs with more localized pain in the right lower quadrant. IV is established. I did offer medications for pain control however she refused originally. Laboratory studies were conducted. Patient does begin to have some nausea and pain and therefore is given 1 g of Tylenol and 4 mg of Zofran. Laboratory studies reveal white count of 16.9. Patient is sent for CT which is read at 1634 as acute appendicitis with possible rupture due to fluid in the pelvis. Patient is informed of this. I did call on-call surgeon Dr. Felipe. Anabiotic's will be initiated. Patient has only had small sips of water today. No food since yesterday. Patient will undergo appendectomy today. OR team is being paged in. - Lab Data Result diagrams: 01/03/21 14:08 01/03/21 14:08 Lab Results 01/03/21 01/03/21 01/03/21 Range/Units 14:08 14:08 14:08 WBC 16.9 H (3.8-10.6) k/uL RBC 4.70 (3.80-5.40) m/uL Hgb 14.3 (11.4-16.0) gm/dL Hct 40.9 (34.0-46.0) % MCV 86.9 (80.0-100.0) fL MCH 30.4 (25.0-35.0) pg MCHC 35.0 (31.0-37.0) g/dL RDW 12.3 (11.5-15.5) % Plt Count 306 (150-450) k/uL MPV 7.9 Neutrophils % 74 % Lymphocytes % 19 % Monocytes % 5 % Eosinophils % 1 % Basophils % 0 % Neutrophils # 12.5 H (1.3-7.7) k/uL Lymphocytes # 3.3 (1.0-4.8) k/uL Monocytes # 0.8 (0-1.0) k/uL Eosinophils # 0.1 (0-0.7) k/uL Basophils # 0.1 (0-0.2) k/uL Sodium (137-145) mmol/L Potassium (3.5-5.1) mmol/L Chloride (98-107) mmol/L Carbon Dioxide (22-30) mmol/L Anion Gap mmol/L BUN (7-17) mg/dL Creatinine (0.52-1.04) mg/dL Est GFR (CKD-EPI)AfAm (>60 ml/min/1.73 sqM) Est GFR (CKD-EPI)NonAf (>60 ml/min/1.73 sqM) Glucose (74-99) mg/dL Calcium (8.4-10.2) mg/dL Total Bilirubin (0.2-1.3) mg/dL AST (14-36) U/L ALT (4-34) U/L Alkaline Phosphatase (38-126) U/L Total Protein (6.3-8.2) g/dL Albumin (3.5-5.0) g/dL Lipase (23-300) U/L Urine Color Colorless Urine Appearance Clear (Clear) Urine pH 6.5 (5.0-8.0) Ur Specific [place] 1.002 (1.001-1.035) Urine Protein Negative (Negative) Urine Glucose (UA) Negative (Negative) Urine Ketones Negative (Negative) Urine Blood Negative (Negative) Urine Nitrite Negative (Negative) Urine Bilirubin Negative (Negative) Urine Urobilinogen <2.0 (<2.0) mg/dL Ur Leukocyte Esterase Negative (Negative) Urine HCG, Qual Not Detected (Not Detectd) 01/03/21 Range/Units 14:08 WBC (3.8-10.6) k/uL RBC (3.80-5.40) m/uL Hgb (11.4-16.0) gm/dL Hct (34.0-46.0) % MCV (80.0-100.0) fL MCH (25.0-35.0) pg MCHC (31.0-37.0) g/dL RDW (11.5-15.5) % Plt Count (150-450) k/uL MPV Neutrophils % % Lymphocytes % % Monocytes % % Eosinophils % % Basophils % % Neutrophils # (1.3-7.7) k/uL Lymphocytes # (1.0-4.8) k/uL Monocytes # (0-1.0) k/uL Eosinophils # (0-0.7) k/uL Basophils # (0-0.2) k/uL Sodium 137 (137-145) mmol/L Potassium 3.9 (3.5-5.1) mmol/L Chloride 104 (98-107) mmol/L Carbon Dioxide 23 (22-30) mmol/L Anion Gap 10 mmol/L BUN 8 (7-17) mg/dL Creatinine 0.60 (0.52-1.04) mg/dL Est GFR (CKD-EPI)AfAm >90 (>60 ml/min/1.73 sqM) Est GFR (CKD-EPI)NonAf >90 (>60 ml/min/1.73 sqM) Glucose 93 (74-99) mg/dL Calcium 9.1 (8.4-10.2) mg/dL Total Bilirubin 0.6 (0.2-1.3) mg/dL AST 18 (14-36) U/L ALT 11 (4-34) U/L Alkaline Phosphatase 106 (38-126) U/L Total Protein 7.6 (6.3-8.2) g/dL Albumin 4.4 (3.5-5.0) g/dL Lipase 67 (23-300) U/L Urine Color Urine Appearance (Clear) Urine pH (5.0-8.0) Ur Specific [place] (1.001-1.035) Urine Protein (Negative) Urine Glucose (UA) (Negative) Urine Ketones (Negative) Urine Blood (Negative) Urine Nitrite (Negative) Urine Bilirubin (Negative) Urine Urobilinogen (<2.0) mg/dL Ur Leukocyte Esterase (Negative) Urine HCG, Qual (Not Detectd) Disposition Clinical Impression: Acute appendicitis Disposition: ADMITTED IP TO THIS [facility] Condition: Stable Is patient prescribed a controlled substance at d/c from ED?: No Referrals: Francisco Javier Acuna MD [Primary Care Provider] - 1-2 days Decision to Admit Reason: Admit from EC Decision Date: 01/03/21 Decision Time: 17:11
--- NOTE | 2021-01-03 17:56 | P.GSHP ---
History of Present Illness H&P Date: 01/03/21 Chief Complaint: Acute appendicitis 35-year-old female comes in the hospital after going to urgent care complaining of diffuse abdominal pain. Pain began yesterday. Increased with movement. She is unable to localize the pain although she was most tender in the right lower quadrant per the ER examination. No gynecologic symptoms. Denies fevers. No urinary symptoms. Denies rectal bleeding or melena. Patient's currently breast-feeding. White blood cell count was elevated at 16. CAT scan shows free fluid in the pelvis any tubular structure adjacent to the cecum. Most consistent with appendicitis with possible rupture. No free air seen. - Review of Systems Comment: The patient denies any acute changes in vision or hearing, no dysphagia or odynophagia, no chest pain or shortness of breath, no dysuria or hematuria, no headache, no runny nose, no rectal bleeding or melena, no unexplained weight loss Past Medical History Past Medical History: Asthma History of Any Multi-Drug Resistant Organisms: None Reported Past Surgical History: No Surgical Hx Reported Past Anesthesia/Blood Transfusion Reactions: No Reported Reaction Past Psychological History: No Psychological Hx Reported Smoking Status: Never smoker Past Alcohol Use History: None Reported Past Drug Use History: None Reported - Past Family History Father Family Medical History: Coronary Artery Disease (CAD), Hypertension Medications and Allergies Home Medications Medication Instructions Recorded Confirmed Type Qyx-Mmzx-Cawuv Acid 1 tab PO DAILY 09/14/17 01/03/21 History [-U Capsule (formulary)] Allergies Allergy/AdvReac Type Severity Reaction Status Date / Time Sulfa (Sulfonamide Allergy Unknown Verified 01/03/21 13:18 Antibiotics) Surgical - Exam Vital Signs Temp Pulse Resp BP Pulse Ox 98.3 F 84 18 122/83 98 01/03/21 13:16 01/03/21 13:16 01/03/21 13:16 01/03/21 13:16 01/03/21 13:16 Physical exam: General: Well-developed, well-nourished HEENT: Normocephalic, sclerae nonicteric Abdomen: Diffuse tenderness increased in the right lower quadrant, nondistended Extremities: No edema Neuro: Alert and oriented Results - Labs 01/03/21 14:08 01/03/21 14:08 Abnormal Lab Results - Last 24 Hours (Table) 01/03/21 Range/Units 14:08 WBC 16.9 H (3.8-10.6) k/uL Neutrophils # 12.5 H (1.3-7.7) k/uL Diabetes panel 01/03/21 Range/Units 14:08 Sodium 137 (137-145) mmol/L Potassium 3.9 (3.5-5.1) mmol/L Chloride 104 (98-107) mmol/L Carbon Dioxide 23 (22-30) mmol/L BUN 8 (7-17) mg/dL Creatinine 0.60 (0.52-1.04) mg/dL Glucose 93 (74-99) mg/dL Calcium 9.1 (8.4-10.2) mg/dL AST 18 (14-36) U/L ALT 11 (4-34) U/L Alkaline Phosphatase 106 (38-126) U/L Total Protein 7.6 (6.3-8.2) g/dL Albumin 4.4 (3.5-5.0) g/dL Calcium panel 01/03/21 Range/Units 14:08 Calcium 9.1 (8.4-10.2) mg/dL Albumin 4.4 (3.5-5.0) g/dL Pituitary panel 01/03/21 Range/Units 14:08 Sodium 137 (137-145) mmol/L Potassium 3.9 (3.5-5.1) mmol/L Chloride 104 (98-107) mmol/L Carbon Dioxide 23 (22-30) mmol/L BUN 8 (7-17) mg/dL Creatinine 0.60 (0.52-1.04) mg/dL Glucose 93 (74-99) mg/dL Calcium 9.1 (8.4-10.2) mg/dL Adrenal panel 01/03/21 Range/Units 14:08 Sodium 137 (137-145) mmol/L Potassium 3.9 (3.5-5.1) mmol/L Chloride 104 (98-107) mmol/L Carbon Dioxide 23 (22-30) mmol/L BUN 8 (7-17) mg/dL Creatinine 0.60 (0.52-1.04) mg/dL Glucose 93 (74-99) mg/dL Calcium 9.1 (8.4-10.2) mg/dL Total Bilirubin 0.6 (0.2-1.3) mg/dL AST 18 (14-36) U/L ALT 11 (4-34) U/L Alkaline Phosphatase 106 (38-126) U/L Total Protein 7.6 (6.3-8.2) g/dL Albumin 4.4 (3.5-5.0) g/dL Assessment and Plan (1) Acute appendicitis Narrative/Plan: Clinical scenario reviewed with the patient. Acute appendicitis remains the most likely diagnosis at this time. We'll proceed with laparoscopic appendectomy, possible open. Other etiologies reviewed with the patient as well. Risks of bleeding, infection, abscess, bladder bowel and ureteral injury, possible other expiration for her abdominal pain, conversion to laparotomy, hernia, anesthesia related complications reviewed. She understands and wishes to proceed. Status: Acute Code(s): K35.80 - UNSPECIFIED ACUTE APPENDICITIS SNOMED Code(s): 73145918
[2021-01-03] MEDS ORDERED: ROCURONIUM 10 MG/ML (5 ML VIAL) IV ONE (18:08)
[2021-01-03] MEDS ORDERED: MIDAZOLAM 2 MG/2 ML VIAL ONE (18:08)
[2021-01-03] MEDS ORDERED: LIDOCAINE 1% INJ 10MG/ML (20 ML MDV) ONE (18:08)
[2021-01-03] MEDS ORDERED: DEXAMETHASONE SOD PHOSPHATE 10 MG/ML 1 ML VIAL ONE (18:08)
[2021-01-03] MEDS ORDERED: SUCCINYLCHOLINE CHLORIDE 100 MG/5 ML SYR IV ONE (18:08)
[2021-01-03] MEDS ORDERED: PROPOFOL 10 MG/ML 20 ML VIAL IV ONE (18:08)
[2021-01-03] MEDS ORDERED: fentaNYL (PF) 50 MCG/ML 2 ML AMP ONE (18:08)
[2021-01-03] MEDS ORDERED: GLYCOPYRROLATE 0.2 MG/ML 2 ML VIAL ONE (18:08)
[2021-01-03] MEDS ORDERED: KETOROLAC 15 MG/ML 1 ML VIAL ONE (18:08)
[2021-01-03] MEDS ORDERED: NEOSTIGMINE 1 MG/ML 10 ML VIAL ONE (18:08)
[2021-01-03] MEDS ORDERED: IV FLUID CONTINUATION 1,000 ML IV ONE (18:10)
[2021-01-03] MEDS ORDERED: NALOXONE 0.4 MG/ML 1 ML VIAL IV PRN (18:16)
[2021-01-03] MEDS ORDERED: BUPIVACAINE (PF) 0.25% 30 ML VIAL SQ ONE (18:25)
[2021-01-03] MEDS ORDERED: HYDROmorphone 0.5 MG/0.5 ML SYRINGE IVP PRN (18:58)
[2021-01-03] MEDS ORDERED: Acetaminophen-Codeine 300-30mg TAB PO PRN (18:58)
[2021-01-03] MEDS ORDERED: ACETAMINOPHEN TAB 325 MG TAB PO PRN (18:58)
--- NOTE | 2021-01-03 19:01 | P.OP ---
Date of Procedure: 01/03/21 Procedure(s) Performed: PREOPERATIVE DIAGNOSIS: Acute appendicitis POSTOPERATIVE DIAGNOSIS: Same PROCEDURE: Laparoscopic appendectomy SURGEON: Matteo EBL: 2 mL ANESTHESIA: General COMPLICATIONS: None OPERATIVE PROCEDURE: The patient was brought and placed on the operating table in the supine position. The patient was placed under general anesthesia. The abdomen was prepped and draped in the usual sterile fashion. A small vertical infraumbilical incision was made. The fascia was retracted anteriorly with Liu forceps. The Veress needle was advanced into the peritoneal cavity. The saline drop test was normal. Insufflation took place to 15 mmHg. A 5 mm trocar was then placed. An additional 5 mm suprapubic trocar was placed under direct visualization as well as a 12 mm left lower quadrant trocar under direct visualization. The appendix was inspected. It was acutely inflamed. The mesoappendix was dissected. The base of the appendix was divided using a linear 45 mm intestinal stapler. The mesentery itself was divided using the LigaSure device. The area was then irrigated. No further purulence or bleeding was seen. The appendix was brought out of the peritoneal cavity through the left lower quadrant trocar site with an Endo Catch bag. The fascia at the 12 mm site was closed using a Robin-[place] 0 Vicryl stitch. The skin at all 3 sites was closed using 4-0 Monocryl sutures. Skin glue was then applied. DISPOSITION: Stable to recovery room
[2021-01-03] MEDS: SODIUM CHLORIDE 0.9% 1,000 ML IV SCH (19:19)
[2021-01-03] MEDS ORDERED: ONDANSETRON 4 MG/2 ML VIAL IVP PRN (20:59)
[2021-01-03] MEDS: HEPARIN SODIUM,PORCINE/PF 5,000 UNIT/0.5 ML SYRINGE SQ SCH (23:52)
[2021-01-03] MEDS: KETOROLAC 15 MG/ML 1 ML VIAL IVP SCH (23:53)
[2021-01-04] MEDS: PIPERACILLIN-TAZOBACTAM 3.375 GM in SODIUM CHLORIDE 0.9% 100 ML IVPB SCH ×2 (00:57→08:27)
[2021-01-04] MEDS: KETOROLAC 15 MG/ML 1 ML VIAL IVP SCH ×2 (05:44→12:42)
[2021-01-04] MEDS: HEPARIN SODIUM,PORCINE/PF 5,000 UNIT/0.5 ML SYRINGE SQ SCH (08:21)
[2021-01-04] MEDS: SODIUM CHLORIDE 0.9% 1,000 ML IV SCH (08:22)
[2021-01-04] MEDS ORDERED: PANTOPRAZOLE 40 MG/10 ML VIAL IV SCH (09:00)
[2021-01-04] MEDS ORDERED: traMADol 50 MG TAB PO PRN (09:49)
--- NOTE | 2021-01-04 09:51 | P.DS ---
Providers Date of admission: 01/03/21 18:43 Expected date of discharge: 01/04/21 Attending physician: Titi Felipe Primary care physician: Francisco Javier Acuna - Discharge Diagnosis(es) (1) Acute appendicitis Patient minute yesterday through the ER with abdominal pain. Patient on CAT scan was shown to have acute appendicitis. Patient underwent uneventful appendectomy last night. Doing better today. Mild nausea. Tolerating liquids. Plan is to seal the patient does throughout the day today. If she is doing better possible discharge later today. Protraction for Ultram sent to her pharmacy. Follow-up one week. No lifting over 10 pounds. Current Visit: No Status: Inactive Patient Condition at Discharge: Stable Plan - Discharge Summary Discharge Rx Participant: No New Discharge Prescriptions: New traMADol HCl [Ultram] 50 mg PO Q6H PRN #6 tab PRN Reason: Pain No Action Bsq-Ltfj-[id number] Acid [-U Capsule (formulary)] 1 tab PO DAILY Discharge Medication List Nwm-Bawb-Urdrc Acid [-U Capsule (formulary)] 1 tab PO DAILY 09/14/17 [History] traMADol HCl [Ultram] 50 mg PO Q6H PRN #6 tab 01/04/21 [Rx] Follow up Appointment(s)/Referral(s): Francisco Javier Acuna MD [Primary Care Provider] - 1-2 days Titi Felipe MD [Medical Doctor] - 1 Week
[2021-01-04 14:09] VITALS: BP 110/70; PULSE 84; RESP 16; TEMP 99
[2021-01-04 21:16] LABS: Basophils % (A) 0 %; Eosinophils # (A) 0.1 k/uL (0-0.7); Eosinophils % (A) 1 %; HCT 37.9 % (34.0-46.0); HGB 12.6 gm/dL (11.4-16.0); Lymphocytes # (A) 1.3 k/uL (1.0-4.8); Lymphocytes % (A) 9 %; MCH 30.7 pg (25.0-35.0); MCHC 33.3 g/dL (31.0-37.0); Mean Platelet Volume 9.4; Monocytes # (A) 0.6 k/uL (0-1.0); Monocytes % (A) 4 %; Neutrophils # (A) 12.9 k/uL (1.3-7.7); Neutrophils % (A) 87 %; Platelet Count 300 k/uL (150-450); RBC 4.11 m/uL (3.80-5.40); RDW 12.5 % (11.5-15.5); WBC 14.9 k/uL (3.8-10.6)
[2021-01-04 21:20] LABS: MCV 92.3 fL (80.0-100.0)
== END 2021-01-04 16:05 | disposition home or self-care (01) ==
LOC: EC 13:08 → 6NMEDSUR 18:43
PROVIDERS: ADMIT Surgery; ATTEND Surgery
DX: K35.80 Unspecified acute appendicitis (principal); J45.909 Unspecified asthma, uncomplicated; Z88.2 Allergy status to sulfonamides; Z82.49 Family history of ischemic heart disease and other diseases of the circulatory system
CPT/HCPCS: 44970; 96361; 96374; 99285; 36415; 88304; 80053; 83690; 85025 ×2; 81003; 81025; 87635; 74177; G0378 ×2; J2543 ×2; J2250; J1100; J2710; J2405; J2001; J3010; J1885 ×2; J0330; J2704; C9113; J1170; Q9967; J1644 ×2

== ENCOUNTER → 2023-10-12 | Outpatient (CLI) | payer BC ==
--- NOTE | 2023-10-14 13:50 | MM ---
Reason for Exam: Screening (asymptomatic). Baseline mammogram. Patient History: Menarche at age 12. First Full-Term at age 32. Late child-bearing (after 30). Premenopausal. Last menstrual period: 09/27/2023 Risk Values: Michelle 5 year model risk: 0.7%. NCI Lifetime model risk: 12.5%. Prior Study Comparison: Patient's first Mammogram. Tissue Density: The breasts are heterogeneously dense, which may obscure small masses. Findings: Analyzed By CAD. Right breast: There is no suspicious group of microcalcifications or new suspicious mass. Left breast: There is no suspicious group of microcalcifications or new suspicious mass. Overall Assessment: Negative, BI-RAD 1 Management: Screening Mammogram of both breasts in [address] [facility] will attempt to contact patient to return for supplemental views and ultrasound if indicated. Patient should continue monthly self-breast exams. A clinical breast exam by your physician is recommended on an annual basis. This exam should not preclude additional follow-up of suspicious palpable abnormalities. Note on Michelle scores and lifetime risk: 1. A Michelle score greater than 3% is considered moderate risk. If this is the case, consider specialist referral to assess eligibility for a risk reducing agent. 2. If overall lifetime risk for the development of breast cancer is 20% or higher, the patient may qualify for future screening with alternating mammogram and breast MRI. Electronically signed and approved by: Massimo Rodriguez DO
== END | disposition home or self-care (01) ==
LOC: RADMAMWWP 08:40
PROVIDERS: ATTEND Obstetrics & Gynecology
DX: Z12.31 Encounter for screening mammogram for malignant neoplasm of breast (principal)
CPT/HCPCS: 77063; 77067

== ENCOUNTER → 2024-10-17 | Outpatient (CLI) | payer BC ==
--- NOTE | 2024-10-17 15:53 | MM ---
Reason for Exam: Screening (asymptomatic). Last screening mammogram was performed 12 month(s) ago. Patient History: Menarche at age 12. First Full-Term at age 32. Late child-bearing (after 30). Premenopausal. Risk Values: Michelle 5 year model risk: 0.8%. NCI Lifetime model risk: 12.4%. Prior Study Comparison: 10/12/2023 Bilateral MG 3D screening mammo w/cad, [facility]. Tissue Density: The breasts are heterogeneously dense, which may obscure small masses. Findings: Analyzed By CAD. Right breast: There is no suspicious group of microcalcifications or new suspicious mass. Left breast: There is no suspicious group of microcalcifications or new suspicious mass. Overall Assessment: Negative, BI-RAD 1 Management: Screening Mammogram of both breasts in [address] [facility] will attempt to contact patient to return for supplemental views and ultrasound if indicated. Patient should continue monthly self-breast exams. A clinical breast exam by your physician is recommended on an annual basis. This exam should not preclude additional follow-up of suspicious palpable abnormalities. Note on Michelle scores and lifetime risk: 1. A Michelle score greater than 3% is considered moderate risk. If this is the case, consider specialist referral to assess eligibility for a risk reducing agent. 2. If overall lifetime risk for the development of breast cancer is 20% or higher, the patient may qualify for future screening with alternating mammogram and breast MRI. [facility], , 10/17/2024 3:50 PM. Electronically signed and approved by: Massimo Rodriguez DO
== END | disposition home or self-care (01) ==
LOC: RADMAMWWP 15:13
PROVIDERS: ATTEND Obstetrics & Gynecology
DX: Z12.31 Encounter for screening mammogram for malignant neoplasm of breast (principal); R92.333 Mammographic heterogeneous density, bilateral breasts
CPT/HCPCS: 77063; 77067